=== PATIENT | female | born 1980 | race Caucasian/White ===

== ENCOUNTER → 2017-11-15 | Outpatient (CLI) | payer BC ==
--- NOTE | 2017-11-15 08:25 | US ---
EXAMINATION TYPE: US thyroid st tissue head/neck DATE OF EXAM: 11/15/2017 COMPARISON: NONE CLINICAL HISTORY: E04.1 thyroid nodule; palpable left upper neck GLAND SIZE: Right Lobe: 4.7 x 1.5 x 1.8 cm Overall Parenchyma: homogenous Left Lobe: 5.0 x 1.1 x 1.1 cm Overall Parenchyma: homogeneous Isthmus Thickness: 0.4 cm NODULES RIGHT: # of nodules measured on right: 0 LEFT: # of nodules measured on left: 0 ISTHMUS: # of nodules measured in the isthmus: 0 Bilateral neck scanned: at palpable upper left neck a lymph node is noted = 1.5 x 0.5 x 0.3cm. Anoth er node is seen inferior to submandibular gland. IMPRESSION: 1. No evidence for thyroid glandular nodule. 2. Small lymph nodes at the site of clinical concern.
== END | disposition home or self-care (01) ==
LOC: RADUSWWP 07:39
PROVIDERS: ATTEND Family Medicine
DX: E04.1 Nontoxic single thyroid nodule (principal)
CPT/HCPCS: 76536

== ENCOUNTER 2017-12-25 21:39 | Emergency (ER) | payer BC ==
[2017-12-25 21:53] VITALS: BP 117/80; PULSE 72; RESP 16; TEMP 98.1
--- NOTE | 2017-12-25 22:31 | ED ---
Upper Extremity HPI - General Chief Complaint: Extremity Injury, Upper Stated Complaint: wrist injury Time Seen by Provider: 12/25/17 21:55 Source: patient, RN notes reviewed Mode of arrival: ambulatory Limitations: no limitations - History of Present Illness Initial Comments: This is a 37-year-old female presents emergency Department chief plan of right wrist pain. She states her 5-year-old to a tantrum and threw a helmet at her striking her right wrist. She states that happened earlier in the day she states she attempted go to work but the pain was too unbearable so she left and is requesting no. - Related Data Home Medications Medication Instructions Recorded Confirmed HYDROcodone/APAP 10-325MG [[place] 1 tab PO Q6HR PRN 09/19/15 09/19/15 10-325] Pnv,Calcium 72/Iron/Folic Acid 1 tab PO DAILY 09/19/15 09/19/15 [ Plus Tablet] Allergies Allergy/AdvReac Type Severity Reaction Status Date / Time codeine phosphate Allergy Unknown Verified 12/25/17 21:54 [From Tylenol-Codeine #3] Review of Systems ROS Statement: Those systems with pertinent positive or pertinent negative responses have been documented in the HPI. ROS Other: All systems not noted in ROS Statement are negative. Past Medical History Additional Past Medical History / Comment(s): Ruptured disc in spine History of Any Multi-Drug Resistant Organisms: None Reported Past Surgical History: Tonsillectomy Past Anesthesia/Blood Transfusion Reactions: No Reported Reaction Past Psychological History: No Psychological Hx Reported Smoking Status: Current every day smoker Past Alcohol Use History: None Reported Past Drug Use History: None Reported - Past Family History Father Family Medical History: Diabetes Mellitus, Hypertension General Exam Limitations: no limitations General appearance: alert, in no apparent distress Head exam: Present: atraumatic, normocephalic, normal inspection Neck exam: Present: normal inspection. Absent: tenderness, meningismus, lymphadenopathy Respiratory exam: Present: normal lung sounds bilaterally. Absent: respiratory distress, wheezes, rales, rhonchi, stridor Cardiovascular Exam: Present: regular rate, normal rhythm, normal heart sounds. Absent: systolic murmur, diastolic murmur, rubs, gallop, clicks Extremities exam: Present: other (Right wrist full range of motion neurovascular intact there is diffuse mild tenderness no obvious deformity no ecchymosis no edema no snuffbox tenderness) Course Vital Signs 12/25/17 21:49 Temperature 98.1 F Pulse Rate 72 Respiratory 16 Rate Blood Pressure 117/80 O2 Sat by Pulse 99 Oximetry Medical Decision Making - Medical Decision Making 37-year-old presented for right wrist pain. X-rays were obtained there are no acute fracture. Patient has a right wrist contusion she'll be given a work note for tonight and return tomorrow. Disposition Clinical Impression: Contusion of right wrist Disposition: HOME SELF-CARE Condition: Stable Instructions: Wrist Injury (ED) Additional Instructions: Please return to the Emergency Department if symptoms worsen or any other concerns. Is patient prescribed a controlled substance at d/c from ED?: No Referrals: Ken Weber MD [Primary Care Provider] - 1-2 days Time of Disposition: 22:31
--- NOTE | 2017-12-25 22:38 | XR ---
EXAMINATION TYPE: XR wrist complete RT DATE OF EXAM: 12/25/2017 COMPARISON: NONE HISTORY: Wrist pain TECHNIQUE: 4 views FINDINGS: I see no fracture nor dislocation. Carpal bones are intact. There are no erosions. There is a oval-shaped 3 mm calcification posterior to the carpus on the lateral view. IMPRESSION: No fracture seen. Posterior calcification probably due to degenerative phenomenon. Normal joint spaces.
== END 2017-12-25 22:49 | disposition home or self-care (01) ==
LOC: EC 21:39
DX: S60.211A Contusion of right wrist, initial encounter (principal); F17.200 Nicotine dependence, unspecified, uncomplicated; Z88.5 Allergy status to narcotic agent; W22.8XXA Striking against or struck by other objects, initial encounter
CPT/HCPCS: 99283

== ENCOUNTER 2019-08-26 19:18 | Emergency (ER) | payer BC ==
--- NOTE | 2019-08-26 20:21 | XR ---
EXAMINATION TYPE: XR shoulder complete RT DATE OF EXAM: 08/26/2019 COMPARISON: NONE HISTORY: Shoulder pain TECHNIQUE: FINDINGS: I see no fracture nor dislocation. Joint spaces are normal. There are no pathologic calcifi cations. IMPRESSION: Negative right shoulder exam.
[2019-08-26 20:55] VITALS: BP 129/94; PULSE 74; RESP 20; TEMP 98
--- NOTE | 2019-08-26 20:55 | ED ---
General Adult HPI - General Chief complaint: Extremity Problem,Nontraumatic Stated complaint: shoulder pain Time Seen by Provider: 08/26/19 20:35 Source: patient, RN notes reviewed, old records reviewed Mode of arrival: ambulatory Limitations: no limitations - History of Present Illness Initial comments: 38-year-old female patient upper intestinal history denies a chance of being [facility] for chief complaint of right shoulder pain. Patient reports that he aches ago she strained her shoulder caring a 5 gallon bucket of water. Reports that today her 3-year-old son also 3 feet in her right anterior shoulder causing her some discomfort. Patient reports that the pain is worse with moving that she has some pain reading down her arm. Denies any other complaints at this time. Systemic: Pt denies fatigue, fever/chills, rash. Pt denies weakness, night sweats, weight loss. Neuro: Pt denies headache, visual disturbances, syncope or pre-syncope. HEENT: Pt denies ocular discharge or irritation, otalgia, rhinorrhea, pharyngitis or notable lymphadenopathy. Cardiopulmonary: Pt denies chest pain, SOB, heart palpitations, dyspnea on exertion. Abdominal/GI: Pt denies abdominal pain, n/v/d. : Pt denies dysuria, burning w/ urination, frequency/urgency. Denies new onset urinary or bowel incontinence. MSK: Pt denies myalgia, loss of strength or function in extremities. Neuro: Pt denies new onset weakness, paresthesias. - Related Data Home Medications Medication Instructions Recorded Confirmed HYDROcodone/APAP 10-325MG [[place] 1 tab PO Q6HR PRN 09/19/15 09/19/15 10-325] Pnv,Calcium 72/Iron/Folic Acid 1 tab PO DAILY 09/19/15 09/19/15 [ Plus Tablet] Allergies Allergy/AdvReac Type Severity Reaction Status Date / Time codeine phosphate Allergy Unknown Verified 12/25/17 21:54 [From Tylenol-Codeine #3] Review of Systems ROS Statement: Those systems with pertinent positive or pertinent negative responses have been documented in the HPI. ROS Other: All systems not noted in ROS Statement are negative. Past Medical History Additional Past Medical History / Comment(s): Ruptured disc in spine History of Any Multi-Drug Resistant Organisms: None Reported Past Surgical History: Tonsillectomy Past Anesthesia/Blood Transfusion Reactions: No Reported Reaction Past Psychological History: No Psychological Hx Reported Smoking Status: Current every day smoker Past Alcohol Use History: None Reported Past Drug Use History: None Reported - Past Family History Father Family Medical History: Diabetes Mellitus, Hypertension General Exam - General Exam Comments Initial Comments: Constitutional: NAD, AOX3, Pt has pleasant affect. HEENT: NC/AT, trachea midline, neck supple, no lymphadenopathy. Posterior pharynx non erythematous, without exudates. External ears appear normal, without discharge. Mucous membranes moist. Eyes PERRLA, EOM intact. There is no scleral icterus. No pallor noted. Cardiopulmonary: RRR, no murmurs, rubs or gallops, no JVD noted. Lungs CTAB in anterior and posterior andino. No peripheral edema. Abdominal exam: Abdomen soft and non-distended. Abdomen non-tender to palpation in all 4 quadrants. Bowel sounds active in LLQ. No hepatosplenomegaly. No ecchymosis Neuro: CN II-XII grossly intact. No nuchal rigidity. No raccon eyes, no lyons sign, no hemotympanum. No cervical spinal tenderness. MSK: No posterior calf tenderness bilaterally, homans sign negative bilaterally. Posterior tibialis and radial pulse +2 bilaterally. Sensation intact in upper and lower extremities. Full active ROM in upper and lower extremities, 5/5 stregnth. Empty can test is positive. Painful arc is positive. No skin changes. Right anterior shoulder mildly tender to palpation. Limitations: no limitations Course Vital Signs 08/26/19 19:40 Temperature 98.5 F Pulse Rate 77 Respiratory 18 Rate Blood Pressure 143/85 O2 Sat by Pulse 98 Oximetry Medical Decision Making - Medical Decision Making 38-year-old female patient presents acutely right shoulder strain. Patient will symptoms are stable, afebrile. Physical exam displayed positive empty can test, full active range of motion however with some discomfort. Painful arc is positive. Patient neurovascularly intact. Plain film of right shoulder is negative. Patient discharged with outpatient orthopedic follow-up as well as primary care. Will return to ED if condition worsens. Disposition Clinical Impression: Sprain of shoulder, right Disposition: HOME SELF-CARE Condition: Stable Instructions (If sedation given, give patient instructions): Shoulder Sprain (ED) Additional Instructions: Follow-up with primary care provider tomorrow. Follow up with orthopedic consult tomorrow. May use Tylenol, Motrin as needed for fever. Return to ER if condition worsens. Is patient prescribed a controlled substance at d/c from ED?: No Referrals: None,Stated [Primary Care Provider] - 1-2 days Parish Ybarra MD [Medical Doctor] - 1-2 days
[2019-08-26] MEDS ORDERED: IBUPROFEN 600 MG STARTER PACK 4 TAB BTL PO STA (20:58)
== END 2019-08-26 21:02 | disposition home or self-care (01) ==
LOC: EC 19:18
DX: S43.401A Unspecified sprain of right shoulder joint, initial encounter (principal); F17.200 Nicotine dependence, unspecified, uncomplicated; Z88.5 Allergy status to narcotic agent; X50.9XXA Other and unspecified overexertion or strenuous movements or postures, initial encounter
CPT/HCPCS: 99283

== ENCOUNTER → 2019-10-30 | Outpatient (CLI) | payer BC ==
--- NOTE | 2019-10-30 16:10 | MR ---
EXAMINATION TYPE: MR shoulder RT wo con DATE OF EXAM: 10/30/2019 COMPARISON: Plain film 10/22/2019 from outside institution HISTORY: Rt shoulder pain/injury x 2 mos TECHNIQUE: Multiplanar, multisequence imaging of the shoulder is performed without contrast. FINDINGS: There is some motion on the exam. Rotator Cuff: Some increased signal is present within the rotator cuff tendon insertion posteriorly s uggestive of a partial tear, coronal image #19 and 20, sagittal image 22, there is increased signal w ithin the tendon. Acromioclavicular Joint: Intact, there is normal alignment Glenohumeral Joint: Unremarkable Labrum: The labrum appears grossly intact given limitation of non-arthrogram study. Biceps Tendon: The long head of biceps is in normal location within bicipital groove. Bone marrow signal: No focal abnormal marrow signal is appreciated. Other: No additional significant abnormality is appreciated. IMPRESSION: Findings likely represent a partial tear the rotator cuff tendon insertion posteriorly, there is some associated tendinosis.
== END | disposition home or self-care (01) ==
LOC: RADMRIMAIN 14:13
PROVIDERS: ATTEND Orthopaedic Surgery
DX: M67.813 Other specified disorders of tendon, right shoulder (principal)

== ENCOUNTER → 2019-11-29 | Outpatient (CLI) | payer BC | END | disposition home or self-care (01) | LOC: LABWHC1 16:28 | PROVIDERS: ATTEND Orthopaedic Surgery | DX: Z53.9 Procedure and treatment not carried out, unspecified reason (principal) ==